=== PATIENT | male | born 1970 | race Caucasian/White ===

== ENCOUNTER 2017-09-27 08:49 | Emergency (ER) | payer SELFPAY ==
[2017-09-27] MEDS ORDERED: IBUPROFEN 800 MG TABLET PO STA (09:54)
--- NOTE | 2017-09-27 10:39 | XRAY Preliminary Report ---
Exam: XR SHOULDER 3 VIEW RT IMPRESSION: AC joint is widened 9 mm. If there is clinical concern for AC joint separation further im aging can be with weighted views [facility] SITE ID: [id number]
--- NOTE | 2017-09-27 10:40 | XRAY Report ---
EXAM: RIGHT SHOULDER RADIOGRAPHY EXAM DATE: 09/27/2017 09:39 AM. CLINICAL HISTORY: Right shoulder injury. Pain COMPARISON: None. TECHNIQUE: 3 views. FINDINGS: Bones: Normal. No fracture or bone lesion. Joints: AC joint is widened 9 mm. The glenohumeral joint is normal. Soft tissues: The visualized hemithorax is unremarkable. No soft tissue swelling. IMPRESSION: AC joint is widened 9 mm. If there is clinical concern for AC joint separation further im aging can be with weighted views [facility] Referring Provider Line: [phone] SITE ID: [id number]
--- NOTE | 2017-09-27 10:57 | ED Physician Documentation ---
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 He fell from a ladder while painting yesterday, impacting his right shoulder. He has had pain in his right shoulder since that time. The pain is exacerbated when trying to lift his right arm. He is right hand dominant. He denies any other significant injuries. Review of Systems Constitutional: denies: Fever Ears: denies: Tinnitus/ringing Nose: denies: Congestion Cardiac: denies: Chest pain / pressure Respiratory: denies: Dyspnea, Cough GI: denies: Abdominal Pain, Nausea, Vomiting Skin: denies: Rash Musculoskeletal: reports: Joint pain (right shoulder). denies: Neck pain, Back pain Neurologic: denies: Focal weakness, Numbness, Headache, LOC PD PAST MEDICAL HISTORY - Past Medical History Past Medical History: Yes Neuro: Headache/migraine Musculoskeletal: Osteoarthritis, Gout - Past Surgical History Past Surgical History: No - Present Medications Home Medications: Ambulatory Orders Medication Instructions Recorded Confirmed Sulfamethoxazole/Trimethoprim 1 each PO BID #14 tablet 01/18/15 [Sulfamethoxazole-Tmp Ds Tablet] - Allergies Allergies/Adverse Reactions: Allergies Allergy/AdvReac Type Severity Reaction Status Date / Time No Known Drug Allergies Allergy Verified 06/22/13 18:31 - Social History Does the pt smoke?: Yes Smoking Status: Current every day smoker Does the pt drink ETOH?: Yes Does the pt have substance abuse?: No - Immunizations Immunizations are current?: No Immunizations: TDAP >10years/unknown - POLST Patient has POLST: No PD ED PE NORMAL - Vitals Vital signs reviewed: Yes (initially hypertensive.) - General General: Alert and oriented X 3, Well developed/nourished, Other (Splotches of white paint on his face, neck, and upper extremities.) - HEENT HEENT: Atraumatic - Neck Neck: No bony TTP - Cardiac Cardiac: RRR - Respiratory Respiratory: No respiratory distress, Clear bilaterally - Abdomen Abdomen: Soft, Non tender - Back Back: No CVA TTP, No spinal TTP - Derm Derm: No rash - Extremities Extremities: No deformity, Other (There is tenderness to palpation over the anterior aspect of the right shoulder. He is not able to abduct the right arm due to pain in his shoulder. However he tolerates passive range of motion. Distal neurovascular is intact.) - Neuro Neuro: Alert and oriented X 3, No motor deficit, No sensory deficit Results - Vitals Vitals: Oxygen O2 Source Room air - Rads (name of study) Right shoulder Radiology: Prelim report reviewed, EMP read contemporaneously, See rad report ( AC joint is widened 9 mm. If there is clinical concern for AC joint separation , further imaging can be with weighted views.) PD MEDICAL DECISION MAKING - ED course Complexity details: reviewed results, re-evaluated patient, considered differential, d/w patient, d/w family ED course: The patient's presentation is significant for contusion to the right shoulder with likely type II acromioclavicular separation, as seen on x-ray of the right shoulder. There is no evidence of fracture. Treatment in the emergency department included application of the right arm sling, and administration of ibuprofen 800 mg orally. I discussed with him the likely course of healing, symptomatic treatment and outpatient follow-up, as well as potentially worrisome signs or symptoms that should prompt reevaluation in the emergency department. Departure - Departure Disposition: 01 Home, Self Care Clinical Impression: Contusion of right shoulder Qualifiers: Encounter type: initial encounter Qualified Code(s): S40.011A - Contusion of right shoulder, initial encounter AC separation, type 2 Qualifiers: Encounter type: initial encounter Laterality: right Qualified Code(s): S43.101A - Unspecified dislocation of right acromioclavicular joint, initial encounter Condition: Stable Instructions: ED Sprain AC Joint Comments: Wear the arm sling for comfort. You can use ibuprofen, up to 800 mg 3 times daily for its anti-inflammatory effect. Let pain be your guide to activity level. Follow up with primary physician within 2 weeks if possible. Call to schedule appointment. Return to the emergency department if you develop increasing pain, or otherwise worsening symptoms. Discharge Date/Time: 09/27/17 11:04
[2017-09-27 11:04] VITALS: BP 144/112
== END 2017-09-27 11:04 | disposition home or self-care (01) ==
LOC: ED 08:49
DX: S40.011A Contusion of right shoulder, initial encounter (principal); S43.101A Unspecified dislocation of right acromioclavicular joint, initial encounter; W11.XXXA Fall on and from ladder, initial encounter; Y99.0 Civilian activity done for income or pay; F17.200 Nicotine dependence, unspecified, uncomplicated
CPT/HCPCS: 99283

== ENCOUNTER 2020-11-28 23:07 | Emergency (ER) | payer BC, OTHER ==
--- NOTE | 2020-11-28 23:33 | ED Physician Documentation ---
PD HPI HEADACHE - Stated complaint Stated Complaint: SORE THROAT - Chief complaint Chief Complaint: Heent - History obtained from History obtained from: Patient - History of Present Illness Timing - onset: How many days ago (3) Timing - onset during: Rest Timing - duration: Days (3) Timing - details: Abrupt onset, Still present (increased pain and swelling to unable to swallow this afternoon.) Worst headache ever?: No: Worst headache ever? (onset typical migraine this evening, but unable to take his usual Imitrex due to sore throat and unable to swallow.) Location: Front, Left Quality: Throbbing, Aching Associated symptoms: Fever (from throat infection the past 3 days.), Nausea. No: Stiff neck, Vomiting, Weakness, Syncope Contributing factors: No: Recent illness Similar symptoms before: Diagnosis (has had migraines in past; no prior throat infecdtion with it.) Recently seen: Clinic (seen PCP this morning and got Augmentin. Has had 1 dose.) Review of Systems Constitutional: reports: Fever, Chills, Myalgias Nose: denies: Rhinorrhea / runny nose, Congestion Throat: denies: Sore throat Cardiac: denies: Chest pain / pressure, Palpitations, Pedal edema, Calf pain Respiratory: denies: Dyspnea, Cough, Wheezing GI: reports: Nausea. denies: Abdominal Pain, Vomiting, Constipation Skin: denies: Rash, Lesions Musculoskeletal: denies: Neck pain, Back pain Neurologic: reports: Difficulty speaking (from the peritonsillar infection.), Headache. denies: Focal weakness, Numbness, Altered mental status PD PAST MEDICAL HISTORY - Past Medical History Cardiovascular: None Respiratory: None Neuro: Migraines Endocrine/Autoimmune: None Musculoskeletal: Osteoarthritis, Gout - Past Surgical History Past Surgical History: No - Present Medications Home Medications: Ambulatory Orders Medication Instructions Recorded Confirmed Sulfamethoxazole/Trimethoprim 1 each PO BID #14 tablet 01/18/15 [Sulfamethoxazole-Tmp Ds Tablet] Ondansetron Odt [Zofran] 4 mg TL Q6H PRN #10 tablet 11/29/20 dexAMETHasone [Decadron] 8 mg PO DAILY 5 Days #10 tablet 11/29/20 - Allergies Allergies/Adverse Reactions: Allergies Allergy/AdvReac Type Severity Reaction Status Date / Time No Known Drug Allergies Allergy Verified 11/28/20 23:23 - Social History Does the pt smoke?: Yes Smoking Status: Current every day smoker Does the pt drink ETOH?: Yes Does the pt have substance abuse?: No - Immunizations Immunizations are current?: No Immunizations: TDAP >10years/unknown - POLST Patient has POLST: No PD ED PE NORMAL - Vitals Vital signs reviewed: Yes - General General: Alert and oriented X 3, Well developed/nourished, Other (appears in pain with swallowing. ) - HEENT HEENT: PERRL (light sensitive). No: Pharynx benign (left peritonsillar area with swelling and redness but not bulging and no submandibular extension. ) - Neck Neck: Supple, no meningeal sign, No adenopathy (minimal left anterior) - Cardiac Cardiac: RRR, No murmur - Respiratory Respiratory: Clear bilaterally - Abdomen Abdomen: Soft, Non tender - Neuro Neuro: Alert and oriented X 3, No motor deficit, Normal speech Results - Vitals Vitals: Vital Signs - 24 hr 11/28/20 11/29/20 11/29/20 23:20 00:30 00:59 Temperature 37.1 C Heart Rate 92 74 69 Respiratory 18 16 16 Rate Blood Pressure 139/102 H 140/89 H 152/93 H O2 Saturation 98 95 96 11/29/20 11/29/20 01:23 02:15 Temperature Heart Rate 74 67 Respiratory 16 16 Rate Blood Pressure 137/85 H O2 Saturation 97 97 Oxygen O2 Source Room air - Labs Labs: Laboratory Tests 11/28/20 11/29/20 11/29/20 23:20 00:22 00:22 WBC 12.5 H RBC 4.46 L Hgb 14.8 Hct 42.0 MCV 94.2 H MCH 33.2 H MCHC 35.2 RDW 12.9 Plt Count 168 MPV 10.3 Neut # (Auto) 9.9 H Lymph # (Auto) 1.1 L Cuming # (Auto) 1.4 H Eos # (Auto) 0.1 Baso # (Auto) 0.1 Absolute Nucleated RBC 0.00 Nucleated RBC % 0.0 Sodium 132 L Potassium 3.7 Chloride 99 L Carbon Dioxide 23 Anion Gap 10.0 BUN 13 Creatinine 0.8 Estimated GFR (MDRD) 102 Glucose 121 H Calcium 8.9 Group A Strep Rapid Negative PD MEDICAL DECISION MAKING - ED course Complexity details: re-evaluated patient (much improved with meds. Voice is more distinct. Feeling able to swallow. ), considered differential (peritonsillar cellulitis. This has triggered migraine, that he has had before. Usually takes Imitrex for migraines, but unable to take it now with the throat pain on swallowing.), d/w patient Departure - Departure Disposition: 01 Home, Self Care Clinical Impression: Peritonsillar cellulitis Migraine headache Qualifiers: Migraine type: without aura Status migrainosus presence: without status migrainosus Intractability: not intractable Qualified Code(s): G43.009 - Migraine without aura, not intractable, without status migrainosus Condition: Stable Record reviewed to determine appropriate education?: Yes Instructions: ED Peritonsillar Infec Abx No I andD Follow-Up: Babar Salazar DO [Primary Care Provider] - Prescriptions: dexAMETHasone [Decadron] 8 mg PO DAILY 5 Days #10 tablet Ondansetron Odt [Zofran] 4 mg TL Q6H PRN #10 tablet PRN Reason: Nausea / Vomiting Comments: Stay well-hydrated. Continue with the Augmentin previously prescribed. Add Decadron steroid daily for 5 days. This will help with the inflammation and swelling as well. Add Tylenol every 4-6 hours if needed for pain. You can use some ibuprofen 3 times a day with food as well. Ondansatron as needed for nausea. I would anticipate good improvement over the next 2 to 3 days and resolution by 3-5. Recheck if not improved in that timeframe and return if worsening. Discharge Date/Time: 11/29/20 02:15
[2020-11-28] MEDS ORDERED: SUMAtriptan 6 MG/0.5 ML VIAL SUBQ STA (23:56)
[2020-11-28] MEDS ORDERED: KETOROLAC 30 MG/ML VIAL IVP STA (23:56)
[2020-11-28] MEDS ORDERED: cefTRIAXone 1 GM VIAL IVP STA (23:56)
[2020-11-28] MEDS ORDERED: SODIUM CHLORIDE 0.9% 1,000 ML IV STA (23:56)
[2020-11-28] MEDS ORDERED: DEXAMETHASONE 10 MG/ML VIAL IVP STA (23:56)
[2020-11-28] MEDS ORDERED: DROPERIDOL 5 MG/2 ML VIAL IVP STA (23:56)
[2020-11-29 00:05] LABS: RAPID STREP SCREEN Negative (Negative)
[2020-11-29 00:33] LABS: BASOPHILS # (AUTO) 0.1 10^3/uL (0.0-0.1); BASOPHILS % (AUTO) 0.6 %; EOSINOPHILS # (AUTO) 0.1 10^3/uL (0.0-0.7); EOSINOPHILS % (AUTO) 0.6 %; HGB - HEMOGLOBIN 14.8 g/dL (14.0-18.0); LYMPHOCYTES # (AUTO) 1.1 10^3/uL (1.5-3.5); LYMPHOCYTES % (AUTO) 8.6 %; MEAN CORPUSCULAR HEMOGLOBIN 33.2 pg (27.0-31.0); MEAN CORPUSCULAR HGB CONC 35.2 g/dL (32.0-36.0); MEAN CORPUSCULAR VOLUME 94.2 fL (80.0-94.0); MEAN PLATELET VOLUME 10.3 fL (7.4-11.4); MONOCYTES # (AUTO) 1.4 10^3/uL (0.0-1.0); MONOCYTES % (AUTO) 10.9 %; NEUTROPHILS # (AUTO) 9.9 10^3/uL (1.5-6.6); PLT - PLATELET COUNT 168 10^3/uL (130-450); RED BLOOD COUNT 4.46 10^6/uL (4.70-6.10); RED CELL DISTRIBUTION WIDTH 12.9 % (12.0-15.0); WHITE BLOOD COUNT 12.5 x10^3/uL (4.8-10.8)
[2020-11-29 00:36] LABS: CALCIUM 8.9 mg/dL (8.5-10.3); CREATININE 0.8 mg/dL (0.6-1.2); POTASSIUM 3.7 mmol/L (3.5-5.0)
[2020-11-29 02:59] VITALS: BP 137/85
== END 2020-11-29 02:15 | disposition home or self-care (01) ==
LOC: ED 23:07
DX: J36 Peritonsillar abscess (principal); G43.009 Migraine without aura, not intractable, without status migrainosus; F17.200 Nicotine dependence, unspecified, uncomplicated
CPT/HCPCS: 36415; 80048; 85025; 87070; 87430; 96374; 96375; 99284

== ENCOUNTER 2020-12-31 07:09 | Day surgery (SDC) | payer OTHER ==
[2020-12-31] MEDS ORDERED: LACTATED RINGERS 1,000 ML IV ONE (07:37)
[2020-12-31] MEDS ORDERED: LIDO GARGLE 30 ML BOTTLE ONE (08:01)
[2020-12-31] MEDS ORDERED: MIDAZOLAM 2 MG/2 ML VIAL ONE ×3 (08:02→08:32)
[2020-12-31] MEDS ORDERED: fentaNYL 250 MCG/5 ML VIAL ONE (08:02)
[2020-12-31] MEDS ORDERED: BENZOCAINE/TETRACAINE/BUTAMBEN 20 GM MM ONE (08:10)
[2020-12-31] MEDS ORDERED: LIDO GARGLE 30 ML BOTTLE PO ONE (08:10)
[2020-12-31] MEDS ORDERED: ONDANSETRON 4 MG/2 ML VIAL ONE (08:46)
[2020-12-31 09:18] VITALS: BP 139/86
== END 2020-12-31 07:10 | disposition home or self-care (01) ==
LOC: SDS 07:09
PROVIDERS: ATTEND Surgery
PROC: 0DB78ZX Excision of Stomach, Pylorus, Via Natural or Artificial Opening Endoscopic, Diagnostic (ICD-10-PCS; principal; 2020-12-31 08:15)
DX: Z12.11 Encounter for screening for malignant neoplasm of colon (principal); R11.2 Nausea with vomiting, unspecified; R19.8 Other specified symptoms and signs involving the digestive system and abdomen; K29.40 Chronic atrophic gastritis without bleeding
CPT/HCPCS: 43239; 45378; A9270; J3010; J7120

== ENCOUNTER 2021-05-22 15:47 | Outpatient (CLI) | payer OTHER ==
--- NOTE | 2021-05-22 17:20 | Ultrasound Report ---
PROCEDURE: Abdomen Complete INDICATIONS: HEPATITIS C TECHNIQUE: Real-time scanning was performed of the abdominal and retroperitoneal organs, with image documentatio n. COMPARISON: None. FINDINGS: Liver: Liver is borderline enlarged and measures 16.7 cm in length. Increased liver parenchymal echo texture is seen, no discrete hepatic lesion is noted. Gallbladder: There is no gallstone. No gallbladder wall thickening or pericholecystic fluid. No sonog raphic Larose's sign. Biliary ducts: Intrahepatic bile ducts are non-dilated. Extrahepatic bile duct caliber measures 6.8 mm. Normal is 6-7 mm or less in diameter, or 10 mm or less post-cholecystectomy. Pancreas: Visualized portions of the pancreas are sonographically normal. Spleen: Spleen is normal in size and homogeneous in echotexture. Kidneys: Kidneys are normal in size and echotexture. Right kidney measures 10.3 cm long; left kidne y measures 11.5 cm long. No hydronephrosis or nephrolithiasis. No solid masses. Aorta: Visualized aorta is normal in caliber at less than 3 cm. Iliacs: Proximal common iliac arteries are normal in caliber at less than 2.5 cm. IVC: Intrahepatic inferior vena cava is patent. Miscellaneous: No free abdominal fluid. IMPRESSION: 1. Borderline hepatomegaly and hepatic steatosis. No discrete hepatic lesion is seen. 2. Normal-appearing gallbladder. No biliary ductal dilatation. 3. Rest of the exam is unremarkable. Reviewed by: Arsalan Rodriguez MD on 05/22/2021 5:19 PM PST Approved by: Arsalan Rodriguez MD on 05/22/2021 5:19 PM PST Station ID: [id number]
== END 2021-05-22 15:48 | disposition home or self-care (01) ==
LOC: DI 15:47
PROVIDERS: ATTEND Internal Medicine Gastroenterology
DX: B18.2 Chronic viral hepatitis C (principal); K76.0 Fatty (change of) liver, not elsewhere classified

== ENCOUNTER 2022-09-04 12:50 | Outpatient (CLI) | payer OTHER ==
--- NOTE | 2022-09-04 18:59 | CT Report ---
PROCEDURE: Low Dose Lung Cancer Screen INDICATIONS: CURRENT SMOKER TECHNIQUE: Noncontrast low-dose axial images were acquired from the pulmonary apices to the posterior costophren ic angles. Multiplanar MIP reformats were then reconstructed. For radiation dose reduction, the follo wing was used: automated exposure control, adjustment of mA and/or kV according to patient size. COMPARISON: None. FINDINGS: Image quality: Excellent. Lungs and pleura: Pulmonary nodules are seen: Right middle lobe anterior, subpleural, series 4 image 212, 6 x 5 mm Left lung apex posterior, series 4 image 60, 4 x 3 mm No pleural effusions. No pneumothorax. Mediastinum: Heart size is normal. No pericardial effusions. No mediastinal adenopathy by size criter ia. No large vessel abnormality. Chest wall and lower neck: Thyroid is unremarkable. No axillary or supraclavicular adenopathy by size . Bones: No aggressive osseous abnormality. Moderate degenerative changes are seen, which are worst inv olving the mid thoracic spine. Upper Abdomen: Unremarkable. IMPRESSION: Bilateral pulmonary nodules are seen, the largest measuring 6 mm. Lung RAD: 3 - Probably Benign. Continue screening in 6 Months with LDCT Non-Lung Significant Findings: None Reviewed by: Dk Allen MD on 09/04/2022 5:58 PM AKDT Approved by: Dk Allen MD on 09/04/2022 5:58 PM AKDT Station ID: [id number]
== END 2022-09-04 12:51 | disposition home or self-care (01) ==
LOC: DI 12:50
PROVIDERS: ATTEND Student in an Organized Health Care Education/Training Program
DX: Z12.2 Encounter for screening for malignant neoplasm of respiratory organs (principal); R91.8 Other nonspecific abnormal finding of lung field; F17.210 Nicotine dependence, cigarettes, uncomplicated

== ENCOUNTER 2023-03-26 12:17 | Outpatient (CLI) | payer OTHER ==
--- NOTE | 2023-03-26 13:13 | XRAY Report ---
PROCEDURE: Lumbar Spine 2 View INDICATIONS: LOW BACK PAIN, UNSPECIFIED TECHNIQUE: 2 views of the lumbar spine were acquired. COMPARISON: None. FINDINGS: Bones: 5 [id number] vertebrae are present. There is multilevel degenerative changes including moderate to severe disc space narrowing at L4-5, L5-S1. Moderate foraminal narrowing is present at L5 -S1.. No vertebral body compression fractures. No suspicious bony lesions. Soft tissues: Overlying bowel gas pattern is normal. No suspicious soft tissue calcifications. Pro minent colonic stool. IMPRESSION: Prominent colonic stool. Degenerative changes most severe at L5-S1. Reviewed by: Estefani Aguilar MD on 03/26/2023 1:12 PM PDT Approved by: Estefani Aguilar MD on 03/26/2023 1:12 PM PDT Station ID: [id number]
== END 2023-03-26 12:18 | disposition home or self-care (01) ==
LOC: DI 12:17
PROVIDERS: ATTEND Internal Medicine
DX: M47.817 Spondylosis without myelopathy or radiculopathy, lumbosacral region (principal)